=== PATIENT | female | born 1980 | race Caucasian/White ===

== ENCOUNTER → 2025-04-10 | Day surgery (SDC) | payer MEDICAID ==
[~2025-04-10] VITALS: Ht 157.5 cm; Wt 74.4 kg
[~2025-04-10] MED LIST: BUPIVACAINE HCL/PF 0.5% (5MG/ML) 10ML ONE; FAMOTIDINE 20MG/2ML VIAL IV ONE; HYDRALAZINE 20MG/ML VIAL IV PRN; HYDROMORPHONE HCL/PF 1MG/ML INJ IV PRN; LABETALOL 5MG/ML 4ML INJ IV PRN; ONDANSETRON HCL 4MG/2ML INJ IV PRN; SKIN ADHESIVE 0.7 GM EA TOP ONE
[2025-04-10] MEDS: LACTATED RINGERS 1,000 ML IV SCH (08:00)
[2025-04-10 08:11] LABS: UCG SCREEN NEGATIVE
== END | disposition home or self-care (01) ==
LOC: OR 07:06
PROVIDERS: ATTEND Surgery
DX: K80.10 Calculus of gallbladder with chronic cholecystitis without obstruction (principal); Z79.899 Other long term (current) drug therapy; Z98.890 Other specified postprocedural states
CPT/HCPCS: 47562; 81025; 88304; J0665; J1308; J7030